=== PATIENT | female | born 1955 | race Caucasian/White ===

== ENCOUNTER 2018-10-09 06:59 | Emergency (ER) | payer BC, OTHER ==
[2018-10-09] MEDS ORDERED: Ciprofloxacin 500 MG Tab PO ONE (07:44)
--- NOTE | 2018-10-09 07:48 | EDM.PDOC ---
ED HPI GENERAL MEDICAL PROBLEM - General Chief Complaint: Genitourinary Problem Stated Complaint: UTI Time Seen by Provider: 10/09/18 07:30 Source of Information: Reports: Patient History Limitations: Reports: No Limitations - History of Present Illness INITIAL COMMENTS - FREE TEXT/NARRATIVE: 62 YO WF presents to ER with dysuria, urinary frequency and urgency since 3am. Pt denies fever/chills, no nausea/vomiting, no back pain. Pt with history of frequency UTI's last infection was May 2018. Pt reports recurrent infections but treated with cipro last incident. Onset: Today Duration: Hour(s): (4) Location: Reports: Other (dysuria). Denies: Abdomen, Back Quality: Reports: Burning Severity: Mild Improves with: Reports: None Worsens with: Reports: None Associated Symptoms: Reports: No Other Symptoms. 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 Musculoskeletal History: Reports: Fracture Endocrine/Metabolic History: Reports: Osteoporosis Other Endocrine/Metabolic History: shogrins - Infectious Disease History Infectious Disease History: Reports: Chicken Pox, Mumps - Past Surgical History HEENT Surgical History: Reports: LASIK, Other (See Below) GI Surgical History: Reports: Colonoscopy Endocrine Surgical History: Reports: None Social & Family History - Tobacco Use Smoking Status *Q: Former Smoker Packs/Tins Daily: 0.1 Used Tobacco, but Quit: Yes Month/Year Tobacco Last Used: 06/16/1979 Second Hand Smoke Exposure: No - Caffeine Use Caffeine Use: Reports: Coffee - Recreational Drug Use Recreational Drug Use: No ED ROS GENERAL - Review of Systems Review Of Systems: See Below Constitutional: Reports: No Symptoms HEENT: Reports: No Symptoms Respiratory: Reports: No Symptoms Cardiovascular: Reports: No Symptoms Endocrine: Reports: No Symptoms GI/Abdominal: Reports: No Symptoms. Denies: Abdominal Pain : Reports: Dysuria, Frequency, Urgency. Denies: Flank Pain Musculoskeletal: Reports: No Symptoms Skin: Reports: No Symptoms Neurological: Reports: No Symptoms Psychiatric: Reports: No Symptoms Hematologic/Lymphatic: Reports: No Symptoms Immunologic: Reports: No Symptoms ED EXAM, RENAL/ - Physical Exam Exam: See Below Exam Limited By: No Limitations General Appearance: Alert, WD/WN, No Apparent Distress Head: Atraumatic, Normocephalic Neck: Normal Inspection, Supple, Non-Tender, Full Range of Motion Respiratory/Chest: No Respiratory Distress, Lungs Clear, Normal Breath Sounds, No Accessory Muscle Use, Chest Non-Tender Cardiovascular: Normal Peripheral Pulses, Regular Rate, Rhythm, No Edema, No Gallop, No JVD, No Murmur, No Rub GI/Abdominal: Normal Bowel Sounds, Soft, Non-Tender, No Organomegaly, No Distention, No Abnormal Bruit, No Mass Back Exam: Normal Inspection, Full Range of Motion, NT Extremities: Normal Inspection, Normal Range of Motion, Non-Tender, Normal Capillary Refill, No Pedal Edema Neurological: Alert, Oriented, CN II-XII Intact, Normal Cognition, Normal Gait, Normal Reflexes, No Motor/Sensory Deficits Psychiatric: Normal Affect, Normal Mood Skin Exam: Warm, Dry, Intact, Normal Color, No Rash Lymphatic: No Adenopathy Course - Vital Signs Last Recorded V/S: Last Vital Signs Temp 36.6 C 10/09/18 07:07 Pulse 65 10/09/18 07:07 Resp 16 10/09/18 07:07 BP 129/64 10/09/18 07:07 Pulse Ox 99 10/09/18 07:07 - Orders/Labs/Meds Orders: Active Orders 24 hr Category Date Time Status URINALYSIS W/MICROSCOPIC [UA W/MICROSCOPIC] [URIN] Stat Lab 10/09/18 07:06 Results Labs: Laboratory Tests 10/09/18 Range/Units 07:06 Urine Color Yellow (YELLOW) Urine Appearance Cloudy H (CLEAR) Urine pH 5.5 (5.0-9.0) Ur Specific [place] 1.025 (1.005-1.030) Urine Protein 30 H (NEGATIVE) mg/dL Urine Glucose (UA) Negative (NEGATIVE) mg/dL Urine Ketones Negative (NEGATIVE) mg/dL Urine Occult Blood Large H (NEGATIVE) Urine Nitrite Negative (NEGATIVE) Urine Bilirubin Negative (NEGATIVE) Urine Urobilinogen 0.2 (0.2-1.0) E.U./dL Ur Leukocyte Esterase Small H (NEGATIVE) Departure - Departure Time of Disposition: 07:50 Disposition: Home, Self-Care 01 Condition: Good Clinical Impression: UTI, Urinary tract infectious disease - Discharge Information Prescriptions: Ciprofloxacin HCl [Cipro] 500 mg PO BID #14 tablet Phenazopyridine HCl [Pyridium] 200 mg PO TID PRN #6 tablet PRN Reason: Pain Instructions: Urinary Tract Infection, Adult, [id number] Referrals: Vickie Nunez MD [Primary Care Provider] - Additional Instructions: 1. discharge home 2. cipro 500mg PO BID x 7 days 3. pyridium 200mg PO TID PRN #6 4. follow up with PCP for urine culture results in 48-72 hours 5. return to ER for worsening symptoms - My Orders Last 24 Hours: My Active Orders 10/09/18 07:06 URINALYSIS W/MICROSCOPIC [UA W/MICROSCOPIC] [URIN] Stat - Assessment/Plan Last 24 Hours: My Active Orders 10/09/18 07:06 URINALYSIS W/MICROSCOPIC [UA W/MICROSCOPIC] [URIN] Stat Assessment:: 1. urinary tract infection Plan: 1. discharge home 2. cipro 500mg PO BID x 7 days 3. pyridium 200mg PO TID PRN #6 4. follow up with PCP for urine culture results in 48-72 hours 5. return to ER for worsening symptoms
[2018-10-09 08:36] VITALS: BP 129/64
[2018-10-09] MEDS ORDERED: Phenazopyridine 100 MG Tab PO ONE (09:00)
== END 2018-10-09 08:05 | disposition home or self-care (01) ==
LOC: KA.ED 06:59
DX: N39.0 Urinary tract infection, site not specified (principal); Z88.0 Allergy status to penicillin; Z88.8 Allergy status to other drugs, medicaments and biological substances; Z87.891 Personal history of nicotine dependence
CPT/HCPCS: 81001; 87086; 99283; A9270-GY

== ENCOUNTER 2018-12-31 06:28 | Emergency (ER) | payer BC, OTHER ==
[2018-12-31 06:41] VITALS: BP 112/62; PULSE 59
[2018-12-31] MEDS ORDERED: Phenazopyridine 100 MG Tab PO ONE (07:14)
--- NOTE | 2018-12-31 07:14 | EDM.PDOC ---
ED HPI GENERAL MEDICAL PROBLEM - General Chief Complaint: Genitourinary Problem Stated Complaint: BURNING WITH URINATION Time Seen by Provider: 12/31/18 07:05 Source of Information: Reports: Patient History Limitations: Reports: No Limitations - History of Present Illness INITIAL COMMENTS - FREE TEXT/NARRATIVE: Patient preseents with dysuria for the last 3 hours and low abdominal pain. 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 Musculoskeletal History: Reports: Fracture, Other (See Below) Other Musculoskeletal History: toes Endocrine/Metabolic History: Reports: Osteoporosis, Other (See Below) Other Endocrine/Metabolic History: shogrins - Infectious Disease History Infectious Disease History: Reports: Chicken Pox, Mumps - Past Surgical History Head Surgeries/Procedures: Reports: None HEENT Surgical History: Reports: LASIK GI Surgical History: Reports: Colonoscopy Endocrine Surgical History: Reports: None Musculoskeletal Surgical History: Reports: None Dermatological Surgical History: Reports: None Social & Family History - Family History Family Medical History: Noncontributory - Caffeine Use Caffeine Use: Reports: Coffee ED ROS GENERAL - Review of Systems Review Of Systems: ROS reveals no pertinent complaints other than HPI. ED EXAM, RENAL/ - Physical Exam Exam: See Below Exam Limited By: No Limitations General Appearance: Alert, WD/WN, No Apparent Distress Eye Exam: Bilateral Eye: EOMI, Normal Inspection, PERRL Ears: Normal External Exam, Hearing Grossly Normal Nose: Normal Inspection, No Blood Throat/Mouth: Normal Inspection, Normal Lips, Normal Voice, No Airway Compromise Head: Atraumatic, Normocephalic Neck: Normal Inspection, Full Range of Motion Respiratory/Chest: No Respiratory Distress, Lungs Clear, Normal Breath Sounds, No Accessory Muscle Use Cardiovascular: Regular Rate, Rhythm, No Murmur GI/Abdominal: Normal Bowel Sounds, Soft, No Organomegaly, No Distention, Tender (mild suprapubic) Back Exam: Normal Inspection, Full Range of Motion. No: CVA Tenderness (L), CVA Tenderness (R) Extremities: Normal Inspection, Normal Range of Motion Neurological: Alert, Oriented, Normal Cognition, No Motor/Sensory Deficits Psychiatric: Normal Affect, Normal Mood Skin Exam: Warm, Dry, Intact, Normal Color, No Rash Course - Vital Signs Last Recorded V/S: Last Vital Signs Temp 97.9 F 12/31/18 06:33 Pulse 59 L 12/31/18 06:33 Resp 16 12/31/18 06:33 BP 112/62 12/31/18 06:33 Pulse Ox 98 12/31/18 06:33 - Orders/Labs/Meds Orders: Active Orders 24 hr Category Date Time Status CULTURE URINE [RM] Stat Lab 12/31/18 07:05 Ordered Labs: Laboratory Tests 12/31/18 Range/Units 06:50 Specimen Type Urincc Urine Color Yellow (YELLOW) Urine Appearance Cloudy H (CLEAR) Urine pH 7.0 (5.0-9.0) Ur Specific [place] 1.020 (1.005-1.030) Urine Protein 100 H (NEGATIVE) mg/dL Urine Glucose (UA) Negative (NEGATIVE) mg/dL Urine Ketones Negative (NEGATIVE) mg/dL Urine Occult Blood Large H (NEGATIVE) Urine Nitrite Negative (NEGATIVE) Urine Bilirubin Negative (NEGATIVE) Urine Urobilinogen 0.2 (0.2-1.0) E.U./dL Ur Leukocyte Esterase Large H (NEGATIVE) Urine RBC Semi-packed (0-5) /HPF Urine WBC Semi-packed (0-5) /HPF Urine Bacteria Moderate H (NONE TO FEW) /HPF Meds: Medications Discontinued Medications Generic Name Dose Route Start Last Admin Trade Name Freq PRN Reason Stop Dose Admin Phenazopyridine HCl 100 mg 12/31/18 07:14 12/31/18 07:17 Pyridium PO 12/31/18 07:15 100 mg BID ONE Administration - Re-Assessments/Exams Free Text/Narrative Re-Assessment/Exam: 12/31/18 07:18 UA shows UTI. Discussed findings and treatment plan. Will culture urine. Pt stable at discharge. Departure - Departure Time of Disposition: 07:14 Disposition: Home, Self-Care 01 Condition: Good Clinical Impression: UTI (urinary tract infection), uncomplicated - Discharge Information Instructions: Urinary Tract Infection, Adult, [id number] Referrals: Vickie Nunez MD [Primary Care Provider] - Forms: ED Department Discharge Additional Instructions: 1. Drink 8 cups of water daily. 2. Take the Cipro as directed. 3. Follow up with DR. Salgado in a week for recheck or sooner if not resolved. - My Orders Last 24 Hours: My Active Orders 12/31/18 07:05 CULTURE URINE [RM] Stat - Assessment/Plan Last 24 Hours: My Active Orders 12/31/18 07:05 CULTURE URINE [RM] Stat
== END 2018-12-31 07:19 | disposition home or self-care (01) ==
LOC: KA.ED 06:28
DX: N39.0 Urinary tract infection, site not specified (principal); Z88.0 Allergy status to penicillin; Z88.8 Allergy status to other drugs, medicaments and biological substances
CPT/HCPCS: 81001; 87086; 87088; 87186; 99283; A9270

== ENCOUNTER 2020-12-11 11:10 | Emergency (ER) | payer BC, OTHER ==
--- NOTE | 2020-12-11 11:19 | EDM.PDOC ---
ED HPI GENERAL MEDICAL PROBLEM - General Chief Complaint: Back Pain or Injury Stated Complaint: MUSCLE SPASM Time Seen by Provider: 12/11/20 11:18 - History of Present Illness INITIAL COMMENTS - FREE TEXT/NARRATIVE: Abbie, 65-year-old female, presents to the emergency department per wheelchair with spasms in her back. She has been undergoing therapy here here at [facility] with [facility] and today spasm worsened during the session and has not released. She is in extreme discomfort and cannot hardly move in the seated position from the wheelchair. She presents here for intervention to be prepared for discharge. 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 Musculoskeletal History: Reports: Fracture, Other (See Below) (Back spasms.) Other Musculoskeletal History: toes Endocrine/Metabolic History: Reports: Osteoporosis, Other (See Below) Other Endocrine/Metabolic History: shogrins - Infectious Disease History Infectious Disease History: Reports: Chicken Pox, Mumps - Past Surgical History Head Surgeries/Procedures: Reports: None HEENT Surgical History: Reports: LASIK GI Surgical History: Reports: Colonoscopy Endocrine Surgical History: Reports: None Musculoskeletal Surgical History: Reports: None Dermatological Surgical History: Reports: None Social & Family History - Family History Family Medical History: No Pertinent Family History - Caffeine Use Caffeine Use: Reports: Coffee ED ROS GENERAL - Review of Systems Review Of Systems: Comprehensive ROS is negative, except as noted in HPI. ED EXAM, GENERAL - Physical Exam Exam: See Below Free Text/Narrative:: Alert, oriented, in significant painful distress to spasming of her thoracic region posteriorly. She had been undergoing therapy for rib head dislocation and had been improving with home therapy as well as treatments. Today's event spasming induced and she is unable to get up from the chair secondary of the spasm and discomfort. No other injuries or complaints noted. HEENT is negative discharge or deformity. Thorax is clear initial evaluation into spasming. Reassess is clear. Cardiac is regular. No deficits to the extremities. Course - Vital Signs Last Recorded V/S: Last Vital Signs Temp 98.9 F 12/11/20 11:15 Pulse 63 12/11/20 11:15 Resp 18 12/11/20 11:15 BP 112/73 12/11/20 11:15 Pulse Ox 97 12/11/20 11:15 - Orders/Labs/Meds Orders: Active Orders 24 hr Category Date Time Status Peripheral IV Care [RC] . DIRECTED Care 12/11/20 11:53 Active Thoracolumbar 2V [CR] Stat Exams 12/11/20 12:44 Ordered Sodium Chloride 0.9% [Saline Flush] Med 12/11/20 11:52 Active 10 ml FLUSH Q8HR PRN Peripheral IV Insertion Adult [OM.PC] Routine Oth 12/11/20 11:53 Ordered Medication Orders Sodium Chloride (Sodium Chloride 0.9% 10 Ml Syringe) 10 ml FLUSH Q8HR PRN PRN Reason: keep vein open Meds: Medications Generic Name Dose Route Start Last Admin Trade Name Freq PRN Reason Stop Dose Admin Sodium Chloride 10 ml 12/11/20 11:52 Sodium Chloride 0.9% 10 Ml Syringe FLUSH Q8HR PRN keep vein open Discontinued Medications Generic Name Dose Route Start Last Admin Trade Name Freq PRN Reason Stop Dose Admin Ketorolac Tromethamine 30 mg 12/11/20 11:21 12/11/20 11:30 Ketorolac 30 Mg/Ml Sdv IVPUSH 12/11/20 11:22 30 mg ONETIME ONE Administration Ketorolac Tromethamine 30 mg 12/11/20 11:21 12/11/20 11:35 Ketorolac 30 Mg/Ml Sdv IM 12/11/20 11:22 30 mg ONETIME ONE Administration Orphenadrine Citrate 60 mg 12/11/20 11:25 12/11/20 11:36 Orphenadrine 60 Mg/2 Ml Inj IM 12/11/20 11:26 60 mg ONETIME ONE Administration - Re-Assessments/Exams Free Text/Narrative Re-Assessment/Exam: 12/11/20 12:19 Upon return to the room to reassess for difficulty, she was able to lean forward slightly in a while palpation which was negative for discomfort at this time. I asked her to take a deep breath at which time we induce spasm and she is once again unable to move. Departure - Departure Time of Disposition: 13:14 Disposition: Home, Self-Care 01 Condition: Good Clinical Impression: Back muscle spasm - Discharge Information *PRESCRIPTION DRUG MONITORING PROGRAM REVIEWED*: Not Applicable *COPY OF PRESCRIPTION DRUG MONITORING REPORT IN PATIENT JIM: Not Applicable Instructions: Muscle Strain, [id number], Spasticity Referrals: Vickie Nunez MD [Primary Care Provider] - Forms: ED Department Discharge Additional Instructions: There are no significant findings on your x-ray other than as we discussed for [id number]. We will get the official read on them later today and will notify you if there is any variance or discrepancy. You may go home and continue your activity as you are able to tolerate and as directed. Continue your medications as directed and follow-up with your clinic as needed. In the event that spasm recurs and becomes severe, beyond what your medication can handle, consider returning to the emergency department for further work-up. Sepsis Event Note (ED) - Focused Exam Vital Signs: Vital Signs Temp Pulse Resp BP Pulse Ox 12/11/20 11:15 98.9 F 63 18 112/73 97 - Problem List & Annotations (1) Back muscle spasm SNOMED Code(s): 722434614 Code(s): M62.830 - MUSCLE SPASM OF BACK Status: Acute Current Visit: Yes - Problem List Review Problem List Initiated/Reviewed/Updated: Yes - My Orders Last 24 Hours: My Active Orders 12/11/20 11:52 Sodium Chloride 0.9% [Saline Flush] 10 ml FLUSH Q8HR PRN 12/11/20 11:53 Peripheral IV Care [RC] . DIRECTED Peripheral IV Insertion Adult [OM.PC] Routine 12/11/20 12:44 Thoracolumbar 2V [CR] Stat - Assessment/Plan Last 24 Hours: My Active Orders 12/11/20 11:52 Sodium Chloride 0.9% [Saline Flush] 10 ml FLUSH Q8HR PRN 12/11/20 11:53 Peripheral IV Care [RC] . DIRECTED Peripheral IV Insertion Adult [OM.PC] Routine 12/11/20 12:44 Thoracolumbar 2V [CR] Stat Plan: There are no significant findings on your x-ray other than as we discussed for [id number]. We will get the official read on them later today and will notify you if there is any variance or discrepancy. You may go home and continue your activity as you are able to tolerate and as directed. Continue your medications as directed and follow-up with your clinic as needed. In the event that spasm recurs and becomes severe, beyond what your medication can handle, consider returning to the emergency department for further work-up.
[2020-12-11] MEDS ORDERED: Ketorolac 30 MG/ML SDV IVPUSH ONE (11:21)
[2020-12-11] MEDS ORDERED: Ketorolac 30 MG/ML SDV IM ONE (11:21)
[2020-12-11] MEDS ORDERED: Orphenadrine 60 MG/2 ML Inj IM ONE (11:25)
[2020-12-11] MEDS ORDERED: Sodium Chloride 0.9% 10 ML Syringe FLUSH PRN (11:52)
[2020-12-11 12:11] VITALS: BP 112/73; PULSE 63
--- NOTE | 2020-12-11 14:09 | CR ---
[id number] RAD/RAD Lumbar Spine 2-3V EXAM: AP AND LATERAL LUMBAR SPINE. INDICATION: Spasm, pain. COMPARISON: No previous similar exam is available for comparison. FINDINGS: No fracture or subluxation is seen. There is preservation of height of disc spaces and vertebrae. Mild multilevel facet arthropathy most proximal at L5-S1. The pedicles are intact. 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 Kota Cutler DO 12/11/20 [id number] Thank you for allowing us to participate in the care of your patient.
== END 2020-12-11 13:25 | disposition home or self-care (01) ==
LOC: KA.ED 11:10
DX: M62.830 Muscle spasm of back (principal); Z88.8 Allergy status to other drugs, medicaments and biological substances; Z88.0 Allergy status to penicillin
CPT/HCPCS: 72080; 96372; 96374; 99283; J1885; J2360

== ENCOUNTER 2021-09-29 08:10 | Emergency (ER) | payer BC, OTHER ==
[2021-09-29 08:21] VITALS: BP 116/65; PULSE 61
== END 2021-09-29 09:08 | disposition home or self-care (01) ==
LOC: KA.ED 08:10
DX: N30.01 Acute cystitis with hematuria (principal); Z88.0 Allergy status to penicillin; Z88.8 Allergy status to other drugs, medicaments and biological substances; Z87.891 Personal history of nicotine dependence
CPT/HCPCS: 81001; 87086; 87088; 87186; 99283; 99284